=== PATIENT | male | born 1990 | race Caucasian/White ===

== ENCOUNTER → 2016-06-30 | Outpatient (CLI) | payer OTHER | LOC: OD 14:03 | PROVIDERS: ATTEND Physician Assistant | DX: M54.5 Low back pain (principal) | CPT/HCPCS: 72110 ==

== ENCOUNTER 2016-09-22 15:12 | Inpatient (IN) | payer OTHER ==
--- NOTE | 2016-09-22 15:22 | ER Document Report ---
ED Respiratory Problem - General Time seen by provider: 15:15 Mode of Arrival: Wheelchair Information source: Patient TRAVEL OUTSIDE OF THE [place] IN LAST 30 DAYS: No - HPI Patient complains to provider of: Chest pain, Short of breath Onset: Other - see HPI note Duration: Continuous, Worse/persistent Associated symptoms: Chest pain/discomfort, Short of breath Similar symptoms previously: No Recently seen / treated by doctor: No <JULIUS RODRIGUEZ - Last Filed: 09/22/16 16:56> <DIONISIO MILLIGAN - Last Filed: 09/22/16 21:10> - General Stated Complaint: WEAKNESS Notes: Patient is a 25 year old male presenting to the emergency department for chest pain and shortness of breath. Patient states he went for a run yesterday and then had some chest pain. Patient went to sleep last night and woke up with continued chest pain that was worse. Patient also states he has some shortness of breath with movement and . Patient went to the doctor to day and was sent for an outpatient x-ray. Patient's x-ray showed a pneumothorax. Dr. Rutherford called the ED to notify physicians that this patient was being sent over. Patient states he has a history of asthma but it hasn't really bothered him. Patient denies any previous surgery history. Patient has no known allergies. ( JULIUS RODRIGUEZ) - Related Data Allergies/Adverse Reactions: No Known Allergies Allergy (Unverified 09/22/16 17:47) Home Medications: Current Home Medications No Home Medications 09/22/16 [History] Past Medical History - General Information source: Patient - Social History Smoking Status: Former Smoker Cigarette use (# per day): No Chew tobacco use (# tins/day): No Frequency of alcohol use: Occasional Drug Abuse: None Family History: None Patient has suicidal ideation: No Patient has homicidal ideation: No Pulmonary Medical History: Reports: Hx Asthma Surgical Hx: Negative <JULIUS RODRIGUEZ - Last Filed: 09/22/16 16:56> Review of Systems - Review of Systems Constitutional: No symptoms reported EENT: No symptoms reported Cardiovascular: See HPI, Chest pain, Dyspnea Respiratory: See HPI, Hurts to breathe, Short of breath Gastrointestinal: No symptoms reported Genitourinary: No symptoms reported Male Genitourinary: No symptoms reported Musculoskeletal: No symptoms reported Skin: No symptoms reported Hematologic/Lymphatic: No symptoms reported Neurological/Psychological: No symptoms reported -: Yes All other systems reviewed and negative <JULIUS RODRIGUEZ - Last Filed: 09/22/16 16:56> Physical Exam - Vital signs Interpretation: Tachypneic - General General appearance: Appears well, Alert In distress: Mild - HEENT Head: Normocephalic, Atraumatic Eyes: Normal Pupils: PERRL Mucous membranes: Moist - Respiratory Respiratory status: Respiratory distress - mild, Tachypnea Chest status: Nontender Breath sounds: Other - decreased breath sounds on the right Chest palpation: Normal - Cardiovascular Rhythm: Regular Heart sounds: Normal auscultation Murmur: No - Abdominal Inspection: Normal Distension: No distension Bowel sounds: Normal Tenderness: Nontender Organomegaly: No organomegaly - Back Back: Normal, Nontender - Extremities General upper extremity: Normal inspection, Normal ROM, Normal strength General lower extremity: Normal inspection, Normal ROM, Normal strength - Neurological Neuro grossly intact: Yes Cognition: Normal Orientation: AAOx4 [place] Coma Scale Eye Opening: Spontaneous [place] Coma Scale Verbal: Oriented Dan[place] Coma Scale Motor: Obeys Commands Danika Coma Scale Total: 15 Speech: Normal - Psychological Associated symptoms: Normal affect, Normal mood - Skin Skin Temperature: Warm Skin Moisture: Dry <JULIUS RODRIGUEZ - Last Filed: 09/22/16 16:56> Course - Laboratory Result Diagrams: 09/22/16 15:29 09/22/16 15:29 - Consults Dr. Garrett Time consulted: 15:00 <JULIUS RODRIGUEZ - Last Filed: 09/22/16 16:56> - Laboratory Result Diagrams: 09/22/16 15:29 09/22/16 15:29 - Diagnostic Test Radiology reviewed: Image reviewed, Reports reviewed <DIONISIO MILLIGAN - Last Filed: 09/22/16 21:10> - Re-evaluation Re-evalutation: 09/22/16 Patient is a 25-year-old male who comes in with a pneumothorax. Surgery consulted to place chest tube and admit. Patient was given fentanyl and ketamine for sedation and chest tube was placed. Patient tolerated well. Patient will be admitted to the surgery service. Pain control. Patient understands and agrees with plan. Repeat chest x-ray showed improvement of pneumothorax (DIONISIO MILLIGAN) - Vital Signs Vital signs: Temp Pulse Resp BP Pulse Ox 99.0 F 88 15 114/66 100 09/22/16 15:12 09/22/16 16:20 09/22/16 19:30 09/22/16 19:30 09/22/16 19:30 - Laboratory Laboratory results interpreted by me: 09/22/16 09/22/16 15:29 15:29 WBC 13.3 H Hgb 17.3 H Absolute Neutrophils 9.7 H Sodium 145.6 H Calcium 10.5 H - Consults Dr. Garrett Reason for consultation: 09/22/16 15:00 Called/paged for Dr. Garrett about patient's radiology findings, he is in the OR currently but will be notified. 09/22/16 15:25 Dr. Garrett came to the ED; patient was discussed; he will place the chest tube and admit the patient. (JULIUS RODRIGUEZ) Procedures - Conscious Sedation Conscious sedation Time started: 15:45 Time completed: 16:15 Consent obtained: Yes Prior complications: Procedural sedation Emergent conditions applies.: E. - ASA Classification Used during procedure: Pulse ox on pt., gambling monitor on pt. Medications administered: Fentanyl - 50 mg, Ketamine - 80 mg Reversal agents: None I personally performed/intraservice time: Sedation, 30 min or less Complications: No <JULIUS RODRIGUEZ - Last Filed: 09/22/16 16:56> - Conscious Sedation Conscious sedation Normal healthy pt.: P1. - ASA Classification Airway Evaluation: Normal anatomy Mallampati Classification: Class 1 Used during procedure: Suction available, IV access obtained I personally performed/intraservice time: Sedation, 31-45 min <DIONISIO MILLIGAN - Last Filed: 09/22/16 21:10> Critical Care Note - Critical Care Note Total time excluding time spent on procedures (mins): 30 - evaluation and management of pneumothorax, multiple reevaluations, consultation of surgery, coordination of admission, counseling of patient <DIONISIO MILLIGAN - Last Filed: 09/22/16 21:10> Discharge <JULIUS RODRIGUEZ - Last Filed: 09/22/16 16:56> - Discharge Admitting Provider: Surgicalist Jez Garrett Unit Admitted: Surgical Floor <DIONISIO MILLIGAN - Last Filed: 09/22/16 21:10> - Discharge Clinical Impression: Pneumothorax on right Condition: Stable Disposition: ADMITTED INPATIENT Scribe Attestation: 09/22/16 21:10 I personally performed the services described in the documentation, reviewed and edited the documentation which was dictated to the scribe in my presence, and it accurately records my words and actions. (DIONISIO MILLIGAN) Scribe Documentation - Scribe Written by Scribtarah:: Julius Rodriguez 09/22/16 15:30 acting as scribe for :: Jolanta <JULIUS RODRIGUEZ - Last Filed: 09/22/16 16:56>
[2016-09-22] MEDS ORDERED: FENTANYL CITRATE INJ/PF 100 MCG/2 ML AMPUL IV ONE (15:28)
[2016-09-22] MEDS ORDERED: KETAMINE HCL INJ 500 MG/10 ML VIAL IV ONE (15:32)
[2016-09-22 15:37] LABS: ABSOLUTE BASOPHILS # (AUTO) 0.1 10^3/uL (0.0-0.2); ABSOLUTE EOSINOPHILS # (AUTO) 0.2 10^3/uL (0.0-0.6); ABSOLUTE LYMPHOCYTES (AUTO) 2.7 10^3/uL (0.5-4.7); ABSOLUTE MONOCYTES (AUTO) 0.7 10^3/uL (0.1-1.4); ABSOLUTE NEUT (AUTO) 9.7 10^3/uL (1.7-8.2); BASOPHILS % (AUTO) 0.6 % (0-2); EOSINOPHILS % (AUTO) 1.6 % (0-6); HEMATOCRIT 48.6 % (37.9-51.0); HEMOGLOBIN 17.3 g/dL (13.5-17.0); HGB HCT DIFFERENCE 3.3; LYMPHOCYTES % (AUTO) 20.1 % (13-45); MEAN CORPUSCULAR HEMOGLOBIN 32.8 pg (27.0-33.4); MEAN CORPUSCULAR HGB CONC 35.5 g/dL (32.0-36.0); MEAN CORPUSCULAR VOLUME 92 fl (80-97); RED BLOOD COUNT 5.27 10^6/uL (4.35-5.55); SEGMENTED NEUTROPHILS % (AUTO) 72.7 % (42-78); WHITE BLOOD COUNT 13.3 10^3/uL (4.0-10.5)
[2016-09-22] MEDS ORDERED: LIDOCAINE 1% INJ-PF (10 MG/ML) 30 ML SDV ONE (15:43)
[2016-09-22] MEDS ORDERED: ONDANSETRON HCL INJ/PF 4 MG/2 ML SDV ONE (15:58)
[2016-09-22 16:07] LABS: ANION GAP 16 (5-19); BLOOD UREA NITROGEN 12 mg/dL (7-20); CALCIUM 10.5 mg/dL (8.4-10.2); CARBON DIOXIDE 25 mmol/L (22-30); CHLORIDE 105 mmol/L (98-107); CREATININE RESULT 0.85 mg/dL (0.52-1.25); GLUCOSE 88 mg/dL (75-110); POTASSIUM 4.5 mmol/L (3.6-5.0); SODIUM 145.6 mmol/L (137-145)
[2016-09-22] MEDS ORDERED: LIDOCAINE 1% INJ-PF (10 MG/ML) 30 ML SDV INFIL ONE (16:09)
--- NOTE | 2016-09-22 19:33 | HISTORY AND PHYSICAL E ---
History and Physical NAME: JENN FRANKS : 1990 AGE: 25Y ADMITTED: 09/22/2016 ROOM: ED70 CHIEF COMPLAINT: Right chest pain. HISTORY OF PRESENT ILLNESS: This is a 25-year-old male who complained of right chest pains yesterday. He lifted weights and then ran half a mile and after that came home with relatively mild chest pains. However, the pains got a little worse today and went to the Emergency Room where a chest x-ray showed a 40% pneumothorax of the right chest. A right chest tube was then placed in the Emergency Room. PAST MEDICAL HISTORY: Unremarkable. SOCIAL HISTORY: He used to smoke 1/2 a pack a day until 6 months ago. Drinks rarely. Denies drug use. REVIEW OF SYSTEMS: As in HPI. Denies any fever, cough or dysuria. Has more chest pain on deep breathing and has some difficulty coughing because of the pain. The rest of the systems are unremarkable. FAMILY HISTORY: Diabetes, father side. ALLERGIES: No known. PHYSICAL EXAMINATION: GENERAL: Well-developed, well-nourished 25-year-old male alert and oriented complaining of right chest pain. HEENT/NECK: Supple. No thyromegaly. HEART: Showed regular sinus rhythm. LUNGS: Show decreased breath sounds on the right side. ABDOMEN: Soft, nontender. EXTREMITIES: No edema. IMPRESSION: Spontaneous right pneumothorax. PLAN: Right chest tube was inserted in the Emergency Room and connected to a Pleurovac. Initial chest x-ray showed almost complete resolution of the pneumothorax. DICTATING PHYSICIAN: HAIDER GOLDBERG M.D. [id number] PHY#: [id number] ID: [id number] JOB#: [id number] ACCT: [id number] cc: >
--- NOTE | 2016-09-22 19:34 | OPERATIVE REPORT E ---
Operative Report NAME: JENN FRANKS : 1990 AGE: 25Y DATE OF SURGERY: 09/22/2016 ROOM: ED70 PREOPERATIVE DIAGNOSIS: Spontaneous pneumothorax right chest. POSTOPERATIVE DIAGNOSIS: Spontaneous pneumothorax right chest. OPERATION: Placement of right chest tube. SURGEON: HAIDER GOLDBERG M.D. ANESTHESIA: IV sedation and local. INDICATIONS: This is a 25-year-old male who complained of right chest pain yesterday after a workout. He came into the Emergency Room today because of persistent chest pain, and chest x-ray showed a 40% pneumothorax of the right chest. PROCEDURE: After adequate IV sedation with fentanyl and ketamine, the patient was placed in semi-erect position and the right chest prepped and draped in the usual sterile fashion. Local anesthesia infiltrated just below the nipple around the fifth intercostal space. A 1.5 cm incision was made and deepened down through the subcutaneous area. The muscle was then further injected with Xylocaine and then divided with hemostat, and finally, the area of the pleura was then injected with Xylocaine and subsequently punctured, and a 24-gauge chest tube was then inserted up to about 8 cm. This was then anchored to the skin with 0 silk and connected to a Pleur-evac. Sterile dressing was placed over the incision site, and the connections within the chest tube and the Pleur-evac reinforced with adhesive tape. Chest x-ray was then obtained after placement of the chest tube and showed that the chest tube appears to be curving over the apex and the pneumothorax almost completely resolved. The patient tolerated the procedure well. DICTATING PHYSICIAN: HAIDER GOLDBERG M.D. [id number] PHY#: [id number] ID: [id number] JOB#: [id number] ACCT: [id number] cc:HAIDER GOLDBERG M.D. >
[2016-09-22] MEDS: HYDROMORPHONE HCL INJ/PF 2 MG/ML AMPULE IV PRN ×2 (19:46→22:19)
[2016-09-22] MEDS: OXYCODONE-ACETAMINOPHEN 5-325 MG TABLET PO PRN (20:57)
[2016-09-23] MEDS: OXYCODONE-ACETAMINOPHEN 5-325 MG TABLET PO PRN ×3 (00:53→22:36)
[2016-09-23] MEDS: HYDROMORPHONE HCL INJ/PF 2 MG/ML AMPULE IV PRN ×6 (03:55→21:23)
[2016-09-23] MEDS: HEPARIN SOD (PORCINE) 5,000 UNIT/ML 1 ML SYRINGE SUBCUT SCH ×2 (08:23→21:24)
[2016-09-23 20:40] VITALS: BP 118/63
--- NOTE | 2016-09-23 23:23 | DISCHARGE SUMMARY E ---
Discharge Summary NAME: JENN FRANKS : 1990 AGE: 25Y ADMITTED: 09/22/2016 DISCHARGED: 09/23/2016 FINAL DIAGNOSES: Spontaneous pneumothorax, right side. SUMMARY: This is a 25-year-old male who lifted weights the day prior to admission. He then ran about half a mile and after running, her complained of right chest pains. The pains persisted and went to the emergency room the next day on 09/22/16, where he was noted to have 40% pneumothorax of the right chest. Right chest tube was then inserted. On 09/23/16, chest x-ray showed right lung completely reexpanded without any pneumothorax. The chest tube was then removed and chest x-ray showed no recurrence of pneumothorax. The patient was then discharged, improved on 09/23/16. A prescription for Percocet was given just for the next 24-48 hours, because he is still complaining of some pains along the right chest insertion site. He was asked to follow up with his primary physician and to [facility] for further surgical concerns. DICTATING PHYSICIAN: HAIDER GOLDBERG M.D. [id number] PHY#: [id number] ID: [id number] JOB#: [id number] ACCT: [id number] cc:HAIDER GOLDBERG M.D., E. R. >
== END 2016-09-23 23:00 | disposition home or self-care (01) | DRG 201 ==
LOC: ER 15:12 → UNDOADMIN 17:12 → EH 17:12 → 4S 20:17 → EH 20:17
PROVIDERS: ADMIT Surgery; ATTEND Surgery
PROC: 0W9930Z Drainage of Right Pleural Cavity with Drainage Device, Percutaneous Approach (ICD-10-PCS; principal; 2016-09-22)
DX: J93.11 Primary spontaneous pneumothorax (principal); J45.909 Unspecified asthma, uncomplicated; F17.210 Nicotine dependence, cigarettes, uncomplicated; Z83.3 Family history of diabetes mellitus
CPT/HCPCS: 36415; 71010; 80048; 85025; 94799; 96374; 99291; J1170; J1644; J2405; J3010; J3490